=== PATIENT | male | born 1955 | race African-American/Black ===

== ENCOUNTER 2024-07-21 08:35 | Day surgery (SDC) | payer MEDICARE, SELFPAY ==
[2024-07-17 13:24] VITALS: BMI 26.2
--- NOTE | 2024-07-20 09:58 | HO.ANESPROP2 ---
Documented by User: Minoo Vega NP 07/20/24 10:10 HPI - Anesthesia Eval Consult details Narrative: 68yo M for Colonoscopy Follows [facility] for HFrEF (30-35%). Stable at 03/2024, no CHF symptoms. Follows [facility] for sarcoid. Stable at 02/2024 office visit Anesthesia Pre-Procedure Meds Is the patient on any of the following meds?: SGLT2 Inhib PMFSH Past Medical History Medical History Aortic valve regurgitation Sarcoidosis HTN (hypertension) PAF (paroxysmal atrial fibrillation) Long COVID Nonischemic cardiomyopathy Diabetes GERD (gastroesophageal reflux disease) HTN (hypertension) Surgical History Surgical History History of bronchoscopy History of esophagogastroduodenoscopy (EGD) Social History Social History Household Members: Spouse Patient Tobacco Use Status: Never used Tobacco Use of substances other than those prescribed or required for medical reasons: No Advance Directives: No Advance Directives Information Provided: Yes Meds Allergies Allergy/AdvReac Type Severity Reaction Status Date / Time No Known Allergies Allergy Verified 07/17/24 13:25 Home Medications ?Medication ?Instructions ?Recorded ?Confirmed ?Last Taken ?Type aspirin 81 mg tablet,delayed 81 mg PO DAILY 07/17/24 07/21/24 07/14/24 History release bisoprolol fumarate 10 mg tablet 10 mg PO DAILY 07/17/24 07/21/24 07/14/24 History dapagliflozin propanediol 10 mg 10 mg PO DAILY 07/17/24 07/21/24 07/14/24 History tablet (Farxiga) fluticasone 100 mcg-salmeterol 50 1 inh inhalation BID 07/17/24 07/21/24 07/14/24 History mcg/dose blistr powdr for inhalation (Wixela Inhub) metformin 500 mg tablet,extended 500 mg PO QAM 07/17/24 07/21/24 07/14/24 History release 24 hr montelukast 10 mg tablet 10 mg PO QPM 07/17/24 07/21/24 07/14/24 History nortriptyline 50 mg capsule 50 mg PO BEDTIME 07/17/24 07/21/24 07/14/24 History omeprazole 40 mg capsule,delayed 40 mg PO DAILY 07/17/24 07/21/24 07/14/24 History release rosuvastatin 5 mg tablet 5 mg PO DAILY 07/17/24 07/21/24 07/14/24 History sacubitril 97 mg-valsartan 103 mg 1 tab PO BID 07/17/24 07/21/24 07/14/24 History tablet (Entresto) spironolactone 25 mg tablet 12.5 mg PO DAILY 07/17/24 07/21/24 07/14/24 History Exam Height,Weight and Vital Signs: Height 5 ft 11 in Weight 85.094 kg Pertinent Lab Results Pertinent Lab Results: CBC and BMP from outside facility 03/2024 [place] Narrative Narrative: ECG 12-Lead ? 11:19:21 Ventricular Rate: 59 BPM Atrial Rate: 59 BPM P-R Interval: 186 ms QRS Duration: 144 ms Q-T Interval: 414 ms QTC Calculation(Bazett): 409 ms P Conyers: 27 degrees R Conyers: 9 degrees T Conyers: 14 degrees Sinus bradycardia Right bundle branch block Abnormal ECG When compared with ECG of 05-FEB-2023 07:57, Vent. rate has decreased BY 49 BPM Confirmed ? Signed By: Rich Everett MD Stress Test no report EchoEchocardiogram - Complete ? 10:40:37 Summary The left ventricular size is normal. The left ventricular wall thickness is mildly increased. The left ventricular ejection fraction is 40-45 %. There is mild aortic regurgitation. The right ventricle is normal in size and mildly hypokinetic. The tricuspid valve is normal in structure and function. There is mild regurgitation. Assessment and Plan Assessment Anesthesia Assessment: Chart Reviewed Documented by User: Kristian Lauren MD 07/23/24 11:32 PMFSH Past Medical History Medical History Aortic valve regurgitation Sarcoidosis HTN (hypertension) PAF (paroxysmal atrial fibrillation) Long COVID Nonischemic cardiomyopathy Diabetes GERD (gastroesophageal reflux disease) HTN (hypertension) Family History Family history of problems with anesthesia: No Surgical History Surgical History History of bronchoscopy History of esophagogastroduodenoscopy (EGD) History of Problems with Anesthesia: No Social History Social History Household Members: Spouse Patient Tobacco Use Status: Never used Tobacco Use of substances other than those prescribed or required for medical reasons: No Advance Directives: No Advance Directives Information Provided: Yes Meds Allergies Allergy/AdvReac Type Severity Reaction Status Date / Time No Known Allergies Allergy Verified 07/17/24 13:25 Home Medications ?Medication ?Instructions ?Recorded ?Confirmed ?Last Taken ?Type aspirin 81 mg tablet,delayed 81 mg PO DAILY 07/17/24 07/21/24 07/14/24 History release bisoprolol fumarate 10 mg tablet 10 mg PO DAILY 07/17/24 07/21/24 07/14/24 History dapagliflozin propanediol 10 mg 10 mg PO DAILY 07/17/24 07/21/24 07/14/24 History tablet (Farxiga) fluticasone 100 mcg-salmeterol 50 1 inh inhalation BID 07/17/24 07/21/24 07/14/24 History mcg/dose blistr powdr for inhalation (Wixela Inhub) metformin 500 mg tablet,extended 500 mg PO QAM 07/17/24 07/21/24 07/14/24 History release 24 hr montelukast 10 mg tablet 10 mg PO QPM 07/17/24 07/21/24 07/14/24 History nortriptyline 50 mg capsule 50 mg PO BEDTIME 07/17/24 07/21/24 07/14/24 History omeprazole 40 mg capsule,delayed 40 mg PO DAILY 07/17/24 07/21/24 07/14/24 History release rosuvastatin 5 mg tablet 5 mg PO DAILY 07/17/24 07/21/24 07/14/24 History sacubitril 97 mg-valsartan 103 mg 1 tab PO BID 07/17/24 07/21/24 07/14/24 History tablet (Entresto) spironolactone 25 mg tablet 12.5 mg PO DAILY 07/17/24 07/21/24 07/14/24 History Exam Airway Mallampati Class: II TM Dist: >3cm Neck ROM: Full Loose/Missing/Broken Teeth: Yes Assessment and Plan Assessment Anesthesia Assessment: Anesthesia Plan Discussed Final Anesthetic Review Family History of Problems with Anesthesia: No History of Problems with Anesthesia: No NPO: Yes ASA Class: III Final Preanesthetic Review: No Changes in Pt Med Stat, Meds/Allgs Chart Reviewed, Consent Obtained/Reviewed and Anes Risks/Benef Reviewed Patient Risk: Intermediate Procedure Risk: Low Anesthetic Plan Anesthetic Plan: MAC: Disposition: Standard PACU
[2024-07-21 08:57] VITALS: BMI 25.4
[2024-07-21 09:08] VITALS: BP 132/67; PULSE 60; RESP 18; TEMP 36.7; O2SAT 96
--- NOTE | 2024-07-21 09:14 | MHC.SHP ---
Pre-Procedural Eval Section A - 24 Hr Update-Section A only Date of Service: 07/21/24 Section B - Complete if H&P > 30 days Chief Complaint: Encounter for screening for malignant neoplasm of Details of Present Illness: see H&P no chnages Relevant Family History (Specify if Yes): No Relevant Social History: None Present Medications: see Short Stay Collaborative assessment Medical History: No relevant PMH Allergies: Allergies Allergy/AdvReac Type Severity Reaction Status Date / Time No Known Allergies Allergy Verified 07/17/24 13:25 Review of Systems Sugical H&P ROS: Negative: Constitution, Cardiovascular, Respiratory, Neurological, Psychiatric, Hem-Onc, Allergic/Immunologic, Gastrointestinal, Genitourinary, Musculoskeletal, Integumentary, Endocrine and Eyes/Ears/Nose/Throat Exam Surgical H&P Exam: Normal: HEENT, Normal: Heart, Normal: Lungs, Normal: Extremities, Normal: Abdomen, Normal: Skin and Normal: Neurological Plan Diagnosis/Plan: Unchanged I have reviewed the history and physical and performed a pertinent physical examination on my patient. No changes have occurred unless specified. Time Spent With Patient Time: Total time managing care of this patient today ____ minutes.
[2024-07-21 09:29] LABS: Glucose, Whole Blood 84 mg/dL (60-115)
[2024-07-21 10:14] VITALS: BP 95/55; PULSE 60; RESP 18; TEMP 36.4; O2SAT 98
[2024-07-21 10:27] VITALS: BP 106/73; PULSE 64; RESP 18; TEMP -13.8; TEMP 7.1; O2SAT 98
--- NOTE | 2024-07-21 10:51 | OP_ITS ---
DATE OF SERVICE: 07/21/2024 SURGEON: Yonatan Sky MD INDICATIONS: Colon cancer screening. PREOPERATIVE DIAGNOSIS: POSTOPERATIVE DIAGNOSIS: PROCEDURE PERFORMED: Colonoscopy to the terminal ileum. ESTIMATED BLOOD LOSS: COMPLICATIONS: ANESTHESIA: Monitored anesthesia care. ASSISTANTS: SPECIMENS: DESCRIPTION OF PROCEDURE: A history and physical was performed. The risks and benefits of the procedure were explained to the patient. Informed consent was obtained. The patient was placed in the left lateral decubitus position. A digital rectal exam was performed and was found to be normal. The Olympus pediatric video colonoscope was introduced into the rectum and advanced to the cecum. The cecum was identified by transillumination, palpation, and identification of ileocecal valve examination was performed. The scope was removed. He tolerated the procedure well and was returned to the recovery area in stable condition. FINDINGS: The terminal ileum was briefly examined and appeared normal. The visualized colonic mucosa was normal. The quality of the prep was good. There was moderate diverticulosis involving the sigmoid. No polyps were identified. Retroflexed examination showed moderate-sized internal hemorrhoids. IMPRESSION: Normal colonoscopy. RECOMMENDATION: 1. Follow up as needed. 2. Repeat colonoscopy is recommended in 10 years for average-risk individuals. MD LUIS MANUEL Neri/JAZ / [id number]
== END 2024-07-21 10:55 | disposition home or self-care (01) ==
PROVIDERS: PCP Nurse Practitioner Family; Visit Provider Internal Medicine Gastroenterology
PROC: 0DJD8ZZ Inspection of Lower Intestinal Tract, Via Natural or Artificial Opening Endoscopic (ICD-10-PCS; CPT 45378; principal; 2024-07-21 10:00)
DX: Z12.11 Encounter for screening for malignant neoplasm of colon (principal); K57.30 Diverticulosis of large intestine without perforation or abscess without bleeding; K64.8 Other hemorrhoids; K21.9 Gastro-esophageal reflux disease without esophagitis; I42.8 Other cardiomyopathies; I10 Essential (primary) hypertension; E11.9 Type 2 diabetes mellitus without complications; Z79.84 Long term (current) use of oral hypoglycemic drugs; Z79.899 Other long term (current) drug therapy
CPT/HCPCS: G0121; 82947; J2003; J2704